=== PATIENT | male | born 1980 | race Caucasian/White ===

== ENCOUNTER 2019-01-09 17:14 | Emergency (ER) | payer OTHER ==
--- NOTE | 2019-01-09 17:32 | ER Document Report ---
HPI - HPI Time Seen by Provider: 01/09/19 17:26 Notes: Patient is a 38-year-old male with no significant past medical history who presents complaining of right toe pain to the 2nd-4th toes status post injury prior to arrival. Patient states that he was running on a track when he actually kicked a piece of metal with a shoe. He has noticed a little bruising to the third toe. He is otherwise able to ambulate, but does have pain with doing so. Denies drug allergies. Pain does not radiate. Denies any headache, fever, URI, sore throat, chest pain, palpitations, syncope, cough, shortness of breath, wheeze, dyspnea, abdominal pain, nausea/vomiting/diarrhea, urinary retention, dysuria, hematuria, numbness/tingling, muscle paralysis/weakness, or rash. - ROS Systems Reviewed and Negative: Yes All other systems reviewed and negative Past Medical History - Social History Smoking Status: Never Smoker Family History: Reviewed & Not Pertinent Vertical Provider Document - CONSTITUTIONAL Agree With Documented VS: Yes Notes: PHYSICAL EXAMINATION: GENERAL: Well-appearing, well-nourished and in no acute distress. LUNGS: Breath sounds clear to auscultation bilaterally and equal. No wheezes rales or rhonchi. HEART: Regular rate and rhythm without murmurs, rubs, gallops. Musculoskeletal: Rt foot/ankle: + mild swelling and ecchymosis distal 3rd toe. No other ecchymosis or deformity. FROM to passive/active. Strength 5+/5. N/V intact distal. + tenderness to the 2nd-4th toes to palp. No other bony tenderness of the foot/ankle. Achilles intact. Lis Franc maneuver neg. Anterior drawer neg. Extremities: No cyanosis, clubbing, or edema b/l. Peripheral pulses 2+. Capillary refill less than 3 seconds. NEUROLOGICAL: Normal speech, normal gait. Normal sensory, motor exams PSYCH: Normal mood, normal affect. SKIN: see above Course - Re-evaluation Re-evalutation: 01/09/19 Patient is an afebrile, well-hydrated, 38-year-old male who presents to the ED with Rt toe pain which I suspect to be a contusion. Vitals are acceptable without any significant tachycardia, tachypnea, or hypoxia. PE is otherwise unremarkable for any neurovascular compromise, obvious tendon/ligament rupture, obvious fracture/dislocation, septic joint. X-ray was unremarkable for any acute pathology. Patient declined any Tylenol or ice. Pt declined crutches. Patient is nontoxic-appearing. Patient is able to ambulate and weight-bear. No other labs or imaging warranted at this time based on H&P. Conservative measures otherwise for symptoms. Recheck with your PCM in 3-5 days. Consider consult orthopedics. Return to the ED with any worsening/concerning symptoms otherwise as reviewed in discharge. Patient is in agreement. - Vital Signs Vital signs: Temp Pulse Resp BP Pulse Ox 98.8 F 75 18 145/82 H 97 01/09/19 17:20 01/09/19 17:20 01/09/19 17:20 01/09/19 17:20 01/09/19 17:20 Discharge - Discharge Clinical Impression: Toe pain, right Condition: Stable Disposition: HOME, SELF-CARE Additional Instructions: Rest, Ice, Compression, Elevation Tylenol/ibuprofen as needed Light stretches daily Strength exercises as able Moist heat and massage may help F/u with your PCP in 3-5 days for a recheck Consider consult(s) with Orthopedics/physical therapy for ongoing/worsening symptoms Return to the ED with any worsening symptoms and/or development of fever, headache, chest pain, palpitations, syncope, shortness of breath, trouble breathing, abdominal pain, n/v/d, muscle weakness/paralysis, numbness/tingling, swelling, redness, or other worsening symptoms that are concerning to you. Forms: Elevated Blood Pressure Referrals: EDDY RYDER DPM [ACTIVE STAFF] - Follow up as needed
--- NOTE | 2019-01-09 18:07 | RADIOLOGY REPORT (SQ) ---
EXAM DESCRIPTION: FOOT RIGHT COMPLETE COMPLETED DATE/TIME: 01/09/2019 5:44 pm REASON FOR STUDY: Rt 2nd-4th toe pain s/p injury COMPARISON: None. NUMBER OF VIEWS: Three views. TECHNIQUE: AP, lateral and oblique radiographic images acquired of the right foot. LIMITATIONS: None. FINDINGS: MINERALIZATION: Normal. BONES: No acute fracture or dislocation. No worrisome bone lesions. JOINTS: No effusions. SOFT TISSUES: No soft tissue swelling. No foreign body. OTHER: No other significant finding. IMPRESSION: NEGATIVE STUDY OF THE RIGHT FOOT. NO RADIOGRAPHIC EVIDENCE OF ACUTE INJURY. TECHNICAL DOCUMENTATION: JOB ID: [id number] [employer]- All Rights Reserved Reading location - IP/workstation name: [email or web address]
[2019-01-09 18:30] VITALS: BP 136/82
== END 2019-01-09 18:32 | disposition home or self-care (01) ==
LOC: ER 17:14
DX: M79.674 Pain in right toe(s) (principal)
CPT/HCPCS: 99283